=== PATIENT | male | born 1985 | race Caucasian/White ===

== ENCOUNTER 2019-08-04 19:19 | Emergency (ER) | payer OTHER ==
[~2019-08-04] VITALS: Ht 170.2 cm; Wt 74.4 kg
[2019-08-05] MEDS ORDERED: ZOFRAN4 MG PO (07:54)
[2019-08-05] MEDS ORDERED: INTESTINEX680 M1 PO (07:54)
[2019-08-05] MEDS ORDERED: PEPCID40 MG PO (07:54)
== END 2019-08-05 00:24 | disposition home or self-care (01) ==
LOC: ER 19:19
DX: K52.9 Noninfective gastroenteritis and colitis, unspecified (principal)

== ENCOUNTER 2024-07-26 09:10 | Emergency (ER) | payer OTHER ==
[~2024-07-26] VITALS: Ht 170.2 cm; Wt 79.4 kg
[~2024-07-26 09:10] MED LIST: INTESTINEX680 M1 PO; PEPCID40 MG PO; ZOFRAN4 MG PO
[2024-07-26] MEDS ORDERED: 0.9 % SODIUM CHLORIDE 1,000 ML IV STA (09:48)
[2024-07-26] MEDS ORDERED: DIATRIZOATE MEGLUMINE, SODIUM 30 ML BOTTLE ONE (10:04)
[2024-07-26 11:02] LABS: HEMATOCRIT 43.2 % (39.0-48.0); HEMOGLOBIN 14.6 g/dL (13-16.00); MEAN CELL VOLUME 84.1 fL (80.0-100.00); MEAN CORPUSCULAR HEMOGLOBIN 28.4 pg (27.00-32.0); MEAN CORPUSCULAR HGB CONC 33.7 g/dl (32.0-36.0); PLATELET COUNT 264 K/uL (150-450); RED BLOOD COUNT 5.14 M/uL (4.00-6.00); RED CELL DISTRIBUTION WIDTH 13.9 % (11.5-14.5)
[2024-07-26 11:21] LABS: CALCIUM 9.5 mg/dL (8.5-10.1); CREATININE SERUM 0.79 mg/dL (0.70-1.30); GFR 110.98; POTASSIUM 4.12 mEq/L (3.5-5.1)
[2024-07-26 12:12] LABS: PH,URINE 5.5 (5.0-8.0); URINE APPEARANCE Clear; URINE BILIRRUBIN Negative (NEGATIVE); URINE BLOOD Negative; URINE COLOR Yellow; URINE GLUCOSE Negative (NEGATIVE); URINE KETONE Negative (NEGATIVE); URINE LEUKOCYTE Negative; URINE NITRATE Negative; URINE PROTEIN Negative (NEGATIVE); URINE UROBILINOGEN 0.2 E.U./dl
[2024-07-26 12:16] LABS: URINE BACTERIA 7.3 uL (0.0-1933); URINE EPITHELIAL CELLS 5.8 uL (0.0-38.8)
[2024-07-26 12:28] LABS: URINE CAST 0.73 uL (0.0-1.40); URINE RBC 1.7 uL (0.0-20.8)
== END 2024-07-26 16:03 | disposition home or self-care (01) ==
LOC: ER 09:10
PROVIDERS: Emergency Medicine
DX: K52.9 Noninfective gastroenteritis and colitis, unspecified (principal)
CPT/HCPCS: 36415; 74177; Q9965